=== PATIENT | male | born 1980 | race Hispanic/Latino ===

== ENCOUNTER 2024-12-19 03:14 | Emergency (ER) | payer BC ==
[~2024-12-19] VITALS: Ht 175.3 cm; Wt 117.9 kg
[2024-12-19] MEDS: ONDANSETRON HCL INJ 2MG/ML 2ML 2 MG/ML VIAL IV STA (03:43)
[2024-12-19 03:46] LABS: BASOPHILS % 0.4 % (0.0-1.0); EOSINOPHILS % 0.5 % (0.0-6.0); LYMPHOCYTES % 26.3 % (18.0-39.1); MONOCYTES % 7.2 % (4.4-11.3); NEUTROPHILS % 64.9 % (38.7-80.0); RED CELL DISTRIBUTION WIDTH 12.2 % (11.7-14.4)
[2024-12-19] MEDS: KETOROLAC TROMETHAMINE 30 MG/ML VIAL IV STA (03:51)
[2024-12-19 04:03] LABS: EST GLOMERULAR FILTRATION RATE 74.0 ML/MIN (>=60)
[2024-12-19 05:06] VITALS: PULSE 78; RESP 17; TEMP 97.8
[2024-12-19 05:08] LABS: LEUKOCYTE ESTERASE ,URINE NEGATIVE (NEGATIVE); PROTEIN,URINE DIPSTICK >=300 (NEGATIVE); URINE UROBILINOGEN 1 mg/dL (0.2 - 1)
[2024-12-19 05:09] LABS: EPITHELIAL CELLS,URINE FEW /LPF
[2024-12-19 05:10] LABS: YEAST,URINE MODERATE
[2024-12-19 05:15] VITALS: BP 120/84; PULSE 78; RESP 17; TEMP 97.8; O2SAT 100
[2024-12-19] MEDS ORDERED: CEFDINIR300 MG PO (05:21)
[2024-12-19] MEDS ORDERED: FLOMAX0.4 MG PO (05:21)
[2024-12-19] MEDS ORDERED: KETOROLAC TROME10 MG PO (05:21)
[2024-12-19] MEDS ORDERED: ONDANSETRON ODT4 MG SL (05:21)
== END 2024-12-19 05:25 | disposition home or self-care (01) ==
LOC: ER 03:27
DX: R31.9 Hematuria, unspecified (principal); N13.2 Hydronephrosis with renal and ureteral calculous obstruction; K57.30 Diverticulosis of large intestine without perforation or abscess without bleeding; K40.20 Bilateral inguinal hernia, without obstruction or gangrene, not specified as recurrent
CPT/HCPCS: 36415; 74176; 80048; 81001; 85025; 99284; J1885; J2405